=== PATIENT | male | born 1970 ===

== ENCOUNTER → 2018-04-07 20:24 | Outpatient (REF) | payer OTHER, SELFPAY ==
[2018-04-07 21:31] LABS: Add Manual Diff / Slide Review NO; Basophils Absolute Auto 0 /uL (0-100); Basophils Percent Auto 0.5 % (0-2); Eosinophils Absolute Auto 200 /uL (0-450); Eosinophils Percent Auto 4.5 % (2-4); Hematocrit 46.6 % (41-53); Hemoglobin 15.8 g/dL (13.5-17.5); Lymphocytes Absolute Auto 800 /uL (1100-4500); Lymphocytes Percent Auto 17.6 % (25-40); Mean Corpuscular HGB Conc 33.9 % (30-36); Mean Corpuscular Hemoglobin 31.6 PG (26-34); Mean Corpuscular Volume 93.2 fL (80-100); Monocytes Absolute Auto 600 /uL (0-900); Monocytes Percent Auto 12.4 % (3-14); Neutrophils Absolute Auto 3100 /uL (1500-7000); Platelet Count 258 X10^3/uL (150-400); White Blood Cell Count 4.7 X10^3/uL (4.5-11.0)
[2018-04-07 21:41] LABS: Alanine Aminotransferase 55 IU/L (21-72); Albumin 4.4 g/dL (3.5-5.0); Albumin Globulin Ratio 1.5 (1.0-2.8); Alkaline Phosphatase 72 U/L (38-126); Aspartate Aminotransferase 82 IU/L (17-59); Bilirubin Total 0.7 mg/dL (0.2-1.3); Blood Urea Nitrogen 13 mg/dL (9-20); Calcium 9.3 mg/dL (8.4-10.2); Carbon Dioxide 29 mmol/L (22-32); Chloride 102 mmol/L (98-107); Cholesterol 195 mg/dL (140-199); Estimated Glomerular Filt Rate > 60.0 mL/min (>60); Glucose 90 mg/dL (70-100); HDL Cholesterol 52 mg/dL (40-60); HEMOLYSIS < 15 (0-50); LDL Cholesterol Calculated 128 mg/dL (<100); Lipase 141 U/L (23-300); Potassium 3.9 mmol/L (3.4-5.1); Sodium 141 mmol/L (137-145); Total Protein 7.4 g/dL (6.3-8.2); Triglycerides 77 mg/dL (35-150)
[2018-04-07 22:09] LABS: Free T4, Direct Thyroxine 1.09 ng/dL (0.78-2.19)
[2018-04-07 22:23] LABS: Thyroid Stimulating Hormone 0.67 uIU/mL (0.47-4.68)
== END ==
LOC: LAB 20:24
PROVIDERS: Visit Provider Physician Assistant
DX: K21.9 Gastro-esophageal reflux disease without esophagitis (principal); Z13.89 Encounter for screening for other disorder; R53.83 Other fatigue; Z72.0 Tobacco use; Z71.9 Counseling, unspecified; G47.33 Obstructive sleep apnea (adult) (pediatric); R10.816 Epigastric abdominal tenderness
CPT/HCPCS: 36415; 80053; 80061; 82728; 83036; 83690; 84439; 84443; 85025